=== PATIENT | female | born 1975 | race Caucasian/White ===

== ENCOUNTER 2017-06-23 08:45 | Emergency (ER) | payer MEDICAID ==
[~2017-06-23] VITALS: Ht 165.1 cm; Wt 63.5 kg
[~2017-06-23 08:45] MED LIST: ALBUTEROL-200 PUFFS/ IH; APAP/BUTALBITAL1 TA1 PO; BENZONATATE100 MG PO; ELIMITE 5%60 GM/TUBE EX; ERYTHROMYCI4 GM/TUBE OP; FLEXERIL10 MG PO; KEFLEX 500MG.500 MG PO; LORATADINE10 MG OR; LORTAB 5/500 501 TAB PO; NOMEDS *; NOMEDS XX; PERCOCET 5/3251 EACH PO; PHENERGAN 25MG.25 M1 PO; PREDNISONE 20MG20 MG PO; PROMETHAZINE25 M1 PO; ULTRAM50 MG PO; VICODIN 5/500 T1 TAB PO; ZITHROMAX Z PA250 MG PO; ZITHROMAX Z-PA250 M2 PO; Zofran4 MG PO
[2017-06-23] MEDS ORDERED: ZITHROMAX Z PA250 MG PO (09:28)
[2017-06-23] MEDS ORDERED: FLONASE 50 MCG16 GM (09:28)
[2017-06-23] MEDS ORDERED: DIABETIC TUSSI118 M2 PO (09:28)
[2017-06-23] MEDS ORDERED: MEDROL 4MG. DOSE4 MG PO (09:28)
--- NOTE | 2017-06-23 09:29 | [facility] Report ---
History of Present Issue Date/Time Seen by Provider 06/23/17 0922 Visit Reason Pt arrived:Walked Presenting Problem:PT STATES COUGH AND CONGESTION FOR ONE MONTH THAT GETS BETTER BUT THEN COMES BACK WORSE Location if Accident: Onset of symptoms date/time:/ or onset unknown for:MEDICAL HX UNKNOWN Have you (or family members/close friends) recently traveled outside the [place]? N If Yes, where/when: Have you had exposure to infectious disease within the past month? TB? Other? Specify: Patient state that she has had cough and chest congestion for over a month States that it seems to get better then comes back and it is worse. State that now she is having sinus pain and congestion with drainage in her throat and her throat feels scratchy. States that she has taken several over the counter medications but they have not helped ALLERGIES Coded Allergies: Penicillins (Mild, 02/11/17) pseudoephedrine (From SUDAFED) (Mild, 02/11/17) Home Medications Active Scripts Permethrin (Elimite 5% Cream; 60GM Tube) 60 GM EX ONCE #1 CRE Prov: 08/06/14 Loratadine 10 MG OR DAILY #10 TAB Ref 1 Prov: 08/19/14 History Medical History General CAD? No Angina: No [place]: No Hypertension? No Hyperlipidemia? No CHF? No DVT? No PE? No COPD? No Asthma? No Anemia? No GERD? No Gastric ulcers? No GI Bleed? No Hernia? No Thyroid Problems? No Hypothyroidism? No CVA? No Seizures? No Diabetes? No Renal Insuffiency? No UTI? Yes Stones? Yes BPH? No GB Disease: Yes Nephritic Syndrome? No Asplenia? No Hepatitis? No Sickle Cell Disease? No Arthritis? No Migraines? No Cataracts? No Glaucoma? No MRSA? No HIV? No TB? No Anxiety? No Depression? No Cancer? No More? 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 Respiratory cough Physical Exam Vital Signs Vital Signs Date Time Temp Pulse Resp B/P Pulse O2 O2 Flow FiO2 Ox Delivery Rate 06/23 909 99.4 79 20 122/80 99 General Appearance normal appearance, WD/WN, no apparent distress Ear, Nose, Throat sinus pain/drainage, nasal congestion, throat red, irritated, sinus pain and tenderness, with drainage noted Respiratory Status Yes: trachea midline, chest symmetrical, non tender chest. No: respiratory distress. Lung Sounds bilateral: normal breath sounds, lungs clear. Cardiovascular normal exam, regular rate/rhythm, no peripheral edema Neurologic alert, chocolate coater II-XII nml as tested, normal exam, no motor/sensory deficits, oriented x 3 Medical Decision Making LABS/Meds/Orders Pt receiving controlled substance in ED? No Departure Departure Time of Disposition 924 Disposition DC Home or Self Care(routine) Clinical Impression Primary Impression: Upper respiratory infection Qualifiers: URI type: unspecified URI Qualified Code: J06.9 - Acute upper respiratory infection, unspecified Condition STABLE Referrals Courtney DÍAZ,Alejandro Fuller (Family) Patient Instructions Cough, DI for Cough -- Adult, DI for Fever (Symptom) -- Adult Additional Instructions * Monitor Temp. Tylenol and/or Ibuprofen as needed. ER if fever is no less than 101 despite alternating Tylenol and Ibuprofen * Encourage fluids, water, Gatorade, powerade, pedialyte if infant/toddler/or child * Warm salt water gargles for throat irritation *Warm fluids *Sore throat lozenges *Sleep elevated *humidifier or vaporizer *Flonase 2 sprays each nostril daily but may take 2-3 days to notice improvement with it *Bromfed may cause drowsiness. Know how it effect you or your child. Before driving, caring for small children or sending your child to school Follow up IMMEDIATELY for new or worsening of symptoms OR no noticeable improvement over the next 48-72 hours. 911 immediately for any life threatening symptoms such as chest pain or difficulty breathing Discharge Counseling Counseled pt/family regarding diagnosis, medications/RX, home care, follow up needs Prescriptions Current Visit Scripts Azithromycin (Zithromycin (Z-YUNIER) 250MG Tab) 250 MG PO DAILY #6 TAB TAKE TWO (2) TABLETS ON DAY 1, THEN ONE (1) TABLET DAY #2 THRU #5 Fluticasone Propionate (Flonase 50 Mcg Nasal [place]) 2 SPRAY NA DAILY #1 BOT Methylprednisolone (Medrol Dose Yunier) 4 MG PO UD #1 YUNIER TAKE DIRECTED ON PACKAGING GUAIFENESIN/DEXTROMETHORPHAN (Diabetic Tussin Dm Liquid) 10 ML PO Q4HP PRN cough #120 ML at 0936
[2017-06-23 09:31] VITALS: BP 122/80
== END 2017-06-23 09:32 | disposition home or self-care (01) ==
LOC: UTC 08:45
DX: J06.9 Acute upper respiratory infection, unspecified (principal); F17.210 Nicotine dependence, cigarettes, uncomplicated